=== PATIENT | male | born 1955 | race Caucasian/White ===

== ENCOUNTER → 2017-05-21 | Outpatient (CLI) | payer BC, OTHER | LOC: BMCIMAGING 15:10 | PROVIDERS: ATTEND Family Medicine | DX: K59.00 Constipation, unspecified (principal) ==

== ENCOUNTER → 2017-06-30 | Outpatient (CLI) | payer BC | LOC: FIMAGING 11:14 | PROVIDERS: ATTEND Internal Medicine | DX: R19.00 Intra-abdominal and pelvic swelling, mass and lump, unspecified site (principal) ==

== ENCOUNTER → 2017-08-17 | Outpatient (CLI) | payer OTHER | LOC: FIMAGING 09:34 | PROVIDERS: ATTEND Internal Medicine | DX: Z13.6 Encounter for screening for cardiovascular disorders (principal); R91.1 Solitary pulmonary nodule ==

== ENCOUNTER → 2017-08-17 | Outpatient (CLI) | payer BC ==
[~2017-08-17] MED LIST: IOPAMIDOL (ISOVUE-300) 100 ML BTL ONE
== END ==
LOC: FIMAGING 09:27
PROVIDERS: ATTEND Internal Medicine
DX: K57.30 Diverticulosis of large intestine without perforation or abscess without bleeding (principal)
CPT/HCPCS: Q9967

== ENCOUNTER 2018-01-11 18:06 | Emergency (ER) | payer BC ==
[2018-01-11 18:18] VITALS: BP 134/79
--- NOTE | 2018-01-11 18:58 | EDPHY ---
H & P Smoking Status: Never smoked Time Seen by Provider: 01/11/18 18:58 HPI/ROS: CHIEF COMPLAINT: abdominal pain HISTORY OF PRESENT ILLNESS: Pt her with abdominal pain worsening for the last day. Pt has recent laparoscopic surgery and repair of abdominal wall hernia. He also has a hx of diverticulitis and pancreatitis. He denies fever, diarrhea, vomiting. He saw his surgeon today who pulled his surgical drain and suggested that his pain may be do to abdominal wall muscle spasm. REVIEW OF SYSTEMS: Constitutional: No fever, no chills. Eyes: No discharge. ENT: No sore throat. Cardiovascular: No chest pain, no palpitations. Respiratory: No cough, no shortness of breath. Gastrointestinal: + abdominal pain, no vomiting. Genitourinary: No hematuria. Musculoskeletal: No back pain. Skin: No rashes. Neurological: No headache. (Renny Monroe) Physical Exam: General Appearance: Alert and no distress. Eyes: Pupils equal and round no injection. Respiratory: Chest is nontender, lungs are clear to auscultation. Cardiac: regular rate and rhythm. Gastrointestinal: Abdomen is soft but tender to LUQ and periumbilical region, no masses, bowel sounds normal. Musculoskeletal: Neck is supple and nontender. Extremities have full range of motion and are nontender. Skin: No rashes or lesions. (Renny Monroe) Constitutional: Initial Vital Signs Temperature (C) 37 C 01/11/18 18:15 Heart Rate 77 01/11/18 18:15 Respiratory Rate 18 01/11/18 18:15 Blood Pressure 134/79 H 01/11/18 18:15 O2 Sat (%) 97 01/11/18 18:15 O2 Delivery Mode Room Air Allergies/Adverse Reactions: sulfamethoxazole [From Bactrim] Allergy (Verified 01/11/18 18:13) trimethoprim [From Bactrim] Allergy (Verified 01/11/18 18:13) Home Medications: Medication Instructions Recorded Aspirin 81mg (*) 01/11/18 Atorvastatin Calcium 01/11/18 Diazepam [Valium 5 MG (*)] 2.5 mg PO BID #10 tab 01/11/18 Levothyroxine 01/11/18 Omeprazole 01/11/18 Vitamin D3 01/11/18 ZYRTEC 01/11/18 Medical Decision Making ED Course/Re-evaluation: CT shows no acute intraabdominal pathology. Labs are unremarkable. Pt declined pain medication. We will start him on valium for possible muscle spasm. No e/o perforation, sbo, appendicitis, abscess, diverticulitis. (Renny Monroe) I did not see or evaluate this patient in the Er. This patient was seen by Fer INFANTE. Agree with work up and plan. (Boy Badillo) - Data Points Laboratory Results: Laboratory Results 01/11/18 19:10 01/11/18 19:10 Medications Given: Discontinued Medications Diazepam (Valium) 2 mg PO EDNOW ONE Stop: 01/11/18 21:15 Last Admin: 01/11/18 21:38 Dose: 2 mg Departure - Departure Disposition: Home, Routine, Self-Care Clinical Impression: Postoperative abdominal pain Condition: Good Instructions: Acute Abdominal Pain (ED) Additional Instructions: Return to the ER for fever, worsening pain or other worrisome symptoms. As discussed the surgeons may be due to muscle spasms of the abdominal wall. Were prescribing a Valium which may take twice a day for the next 5 days. Referrals: Rimma Palumbo MD [Primary Care Provider] - As per Instructions Prescriptions: Diazepam [Valium 5 MG (*)] 2.5 mg PO BID #10 tab
[2018-01-11] MEDS ORDERED: IOPAMIDOL (ISOVUE-300) 100 ML BTL ONE (19:52)
[2018-01-11] MEDS ORDERED: DIAZEPAM 2 MG TAB PO ONE (21:14)
[2018-01-11] MEDS ORDERED: DIAZEPAM 5 MG TAB ONE (21:36)
== END 2018-01-11 21:42 | disposition home or self-care (01) ==
DX: G89.18 Other acute postprocedural pain (principal); R10.9 Unspecified abdominal pain
CPT/HCPCS: Q9967

== ENCOUNTER → 2018-09-02 | Outpatient (CLI) | payer OTHER | LOC: FIMAGING 07:20 | PROVIDERS: ATTEND Internal Medicine | DX: R10.9 Unspecified abdominal pain (principal); K76.0 Fatty (change of) liver, not elsewhere classified ==